=== PATIENT | male | born 1980 | race American Indian/Alaskan Native ===

== ENCOUNTER 2018-11-09 08:51 | Observation (INO) | payer MEDICAID ==
[2018-11-09] MEDS ORDERED: Sodium Chloride 0.9% 1,000 ML IV ONE (09:22)
[2018-11-09] MEDS ORDERED: Albuterol 0.083% Inhal Sol (2.5 mg/3 mL) UD IH STA (09:22)
[2018-11-09] MEDS ORDERED: Sodium Chloride 0.9% 1,000 ML ONE (09:40)
[2018-11-09] MEDS ORDERED: Albuterol-Ipratrop 3 mg / 0.5 (3 ml) UD INH STA (10:29)
[2018-11-09] MEDS ORDERED: Albuterol 0.083% Inhal Sol (2.5 mg/3 mL) UD ONE (10:43)
--- NOTE | 2018-11-09 10:44 | C.PDOC ---
History Of Present Illness 38 year old male presents to ED with complaint of SOB and wheezing for several days. Patient has a PMHx of asthma. He reports feeling tremulous due to alcohol withdrawal. Patient states that he drinks daily and states that his last drink was yesterday morning. Patient denies chest pain,fever, cough, palpitations, headache, and dizziness. Time Seen by Provider: 11/09/18 09:06 Chief Complaint (Nursing): Substance Abuse History Per: Patient History/Exam Limitations: no limitations Onset/Duration Of Symptoms: Days Current Symptoms Are (Timing): Still Present Suicide/Self Injury Attempted (Context): None Modifying Factor(s): Alcohol Past Medical History Reviewed: Historical Data, Nursing Documentation, Vital Signs Vital Signs: Last Vital Signs Temp 98.4 F 11/09/18 08:54 Pulse 122 H 11/09/18 08:54 Resp 24 11/09/18 08:54 BP 155/89 H 11/09/18 08:54 Pulse Ox 97 11/09/18 08:54 - Medical History PMH: Asthma, HTN, Pancreatitis Surgical History: No Surg Hx Family History: States: Unknown Family Hx - Social History Hx Alcohol Use: Yes Hx Substance Use: No - Immunization History Hx Tetanus Toxoid Vaccination: No Hx Influenza Vaccination: Yes Hx Pneumococcal Vaccination: No Review Of Systems Constitutional: Negative for: Fever, Chills, Weakness Cardiovascular: Negative for: Chest Pain, Palpitations Respiratory: Positive for: Shortness of Breath, Wheezing. Negative for: Cough Neurological: Negative for: Weakness, Numbness, Headache, Dizziness Physical Exam - Physical Exam Appears: Non-toxic, No Acute Distress, Other (uncomfortable, speaking full sentences) Skin: Normal Color, Warm, Dry Head: Atraumatic, Normacephalic Neck: Normal ROM, Supple Chest: Symmetrical, No Deformity Cardiovascular: Rhythm Regular, Other (tachycardic) Respiratory: No Accessory Muscle Use, No Rales, No Rhonchi, Wheezing (expiratory wheezing bilaterally) Gastrointestinal/Abdominal: Soft, No Tenderness Extremity: Capillary Refill (<2 seconds), Other (mild tremors to the bilateral upper extremities) Pulses: Left Radial: Normal, Right Radial: Normal Neurological/Psych: Oriented x3, Normal Speech, Normal Cognition ED Course And Treatment - Laboratory Results Result Diagrams: 11/09/18 10:49 11/09/18 10:49 O2 Sat by Pulse Oximetry: 97 (in RA) - Other Rad CXR X-Ray: Interpreted by Me, Viewed By Me Interpretation: IMPRESSION: No acute findings identified. Progress Note: Labs ordered with CMP and CBC. CXR ordered for patient. Patient given Solu-medrol IVP, IV fluids, albuterol, and ativan. Disposition - Disposition Forms: [place] (Belarusian) - Scribe Statement The provider has reviewed the documentation as recorded by the Scribe (Smita Patterson) All medical record entries made by the Scribe were at my direction and person ally dictated by me. I have reviewed the chart and agree that the record accurately reflects my personal performance of the history, physical exam, medical decision making, and the department course for this patient. I have also personally directed, reviewed, and agree with the discharge instructions and disposition.
[2018-11-09 10:55] LABS: BASO % 1.1 % (0.0-2.0); EOS % 0.6 % (0.0-4.0); HEMOGLOBIN 14.5 g/dL (12.0-18.0); LYMPH # 1.2 K/uL (1.0-4.3); LYMPH % 32.9 % (20.0-40.0); MEAN CELL VOLUME 95.5 fL (80.0-94.0); MEAN CORPUSCULAR HEMOGLOBIN 32.4 pg (27.0-31.0); MEAN CORPUSCULAR HGB CONC 33.9 g/dL (33.0-37.0); MEAN PLATELET VOLUME 11.4 fL (7.2-11.7); MONO # 0.3 K/uL (0.0-0.8); MONO % 8.1 % (0.0-10.0); NEUT # 2.1 K/uL (1.8-7.0); NEUT % 57.3 % (50.0-75.0); NRBC % 0.1 % (0.0-2.0); RBC 4.47 Mil/uL (4.40-5.90); RED CELL DISTRIBUTION WIDTH 14.8 % (11.5-14.5); WHITE BLOOD COUNT 3.7 K/uL (4.8-10.8)
[2018-11-09 11:13] LABS: ALB/GLOB RATIO 1.5 (1.0-2.1); ALBUMIN 4.7 g/dL (3.5-5.0); ALT/SGPT 62 U/L (21-72); AST/SGOT 236 U/L (17-59); BLOOD UREA NITROGEN 7 mg/dL (9-20); CALCIUM 9.7 mg/dl (8.6-10.4); GFR NON-AFRICAN AMERICAN > 60
--- NOTE | 2018-11-09 11:16 | RAD ---
HISTORY: SOB COMPARISON: None available. TECHNIQUE: Chest, one view. FINDINGS: Examination limited by habitus. LUNGS: No focal consolidation. Please note that chest x-ray has limited sensitivity for the detection of pulmonary masses. PLEURA: No significant pleural effusion identified. No definite pneumothorax . CARDIOVASCULAR: Heart size appears within normal limits. Atherosclerotic calcification of the aortic knob. OSSEOUS STRUCTURES: No acute osseous abnormality identified. VISUALIZED UPPER ABDOMEN: Unremarkable. OTHER FINDINGS: None. IMPRESSION: No acute findings identified.
[2018-11-09] MEDS ORDERED: Potassium Chloride 20 mEq ER Tab PO STA (11:23)
[2018-11-09] MEDS ORDERED: Potassium Chloride 20 mEq ER Tab PO ONE (11:30)
[2018-11-09] MEDS ORDERED: Magnesium Sulfate 1 gm in D5W 1 GM/100 ML BAG IV ONE (11:41)
[2018-11-09] MEDS ORDERED: Multivitamin (MVI) 10 ML, Thiamine 100 MG, Folic Acid 1 MG in Sodium Chloride 0.9% 1,00... IV ONE (11:42)
[2018-11-09] MEDS ORDERED: Magnesium Sulfate 2 GM in Dextrose 5% In Water 250 ML IV ONE (12:00)
[2018-11-09] MEDS: Albuterol-Ipratrop 3 mg / 0.5 (3 ml) UD INH SCH ×2 (16:48→19:28)
[2018-11-09] MEDS ORDERED: Pneumococcal 23-Valent Vaccine IM ONE (18:45)
[2018-11-09] MEDS: Dextrose 5%/0.45% NS 1,000 ML IV SCH (20:42)
[2018-11-10] MEDS: Albuterol-Ipratrop 3 mg / 0.5 (3 ml) UD INH SCH ×4 (00:44→11:22)
[2018-11-10] MEDS ORDERED: Meropenem 1 GM in Sodium Chloride 0.9% 100 ML IVPB SCH (02:00)
[2018-11-10] MEDS: Dextrose 5%/0.45% NS 1,000 ML IV SCH (05:46)
--- NOTE | 2018-11-10 07:44 | CP.PCM.PN ---
Subjective - Date & Time of Evaluation Date of Evaluation: 11/10/18 Time of Evaluation: 08:00 - Subjective Subjective: Medicine Progress Note for Dr. Jarvis: Patient was seen and examined at bedside in the AM. Patient states he came to the ER yesterday for shortness of breath. He also states he was feeling tremulous due to alcohol withdrawal. Patient states that he drinks daily about 1/5 of vodka per day for the past 20 years. He states last drink was Wednesday. Patient states he has had seizures from alcohol withdrawal in the past. He states he has a loose bowel movement daily due to his drinking of alcohol. Patient currently denies shortness of breath, chest pain, nausea, vomiting, fever or chills at this time. Objective - Vital Signs/Intake and Output Vital Signs (last 24 hours): Temp Pulse Resp BP Pulse Ox 98.1 F 88 20 146/84 97 11/09/18 23:14 11/10/18 01:00 11/09/18 23:14 11/09/18 23:14 11/10/18 02:00 Intake and Output: 11/10/18 11/10/18 06:59 18:59 Intake Total 1300 Balance 1300 - Medications Medications: Current Medications Acetaminophen (Tylenol 325mg Tab) 650 mg PO Q6 PRN PRN Reason: Pain, moderate (4-7) Last Admin: 11/09/18 22:18 Dose: 650 mg Albuterol/Ipratropium (Duoneb 3 Mg/0.5 Mg (3 Ml) Ud) 3 ml INH RQ4 RIC Last Admin: 11/10/18 04:50 Dose: Not Given Dextrose/Sodium Chloride (Dextrose 5%/0.45% Ns 1000 Ml) 1,000 mls @ 100 mls/hr IV .Q10H RIC Last Admin: 11/10/18 05:46 Dose: Not Given Lorazepam (Ativan) 2 mg IVP Q3H PRN PRN Reason: Restlessness Last Admin: 11/10/18 05:46 Dose: 2 mg - Labs Labs: 11/09/18 10:49 11/09/18 10:49 - Constitutional Appears: No Acute Distress - Head Exam Head Exam: ATRAUMATIC, NORMAL INSPECTION - Eye Exam Eye Exam: EOMI, Normal appearance - ENT Exam ENT Exam: Mucous Membranes Dry - Respiratory Exam Respiratory Exam: Clear to Ausculation Bilateral, NORMAL BREATHING PATTERN - Cardiovascular Exam Cardiovascular Exam: REGULAR RHYTHM, +S1, +S2 - GI/Abdominal Exam GI & Abdominal Exam: Soft, Normal Bowel Sounds. absent: Tenderness - Extremities Exam Extremities Exam: Normal Inspection - Neurological Exam Neurological Exam: Alert, Awake, Oriented x3 Additional comments: tremulous - Psychiatric Exam Psychiatric exam: Flat Affect - Skin Skin Exam: Normal Color Assessment and Plan - Assessment and Plan (Free Text) Assessment: Shortness of breath - resolved Secondary to Asthma Exacerbation - Duonebs q4h prn for shortness of breath Alcohol Dependence - Alcohol Level: 168 - f/u UDS - Discussed the importance of alcohol cessation - CIWA - Medications * Ativan 2mg IV q3 prn * Multivitamin Elevated Liver Enzymes Secondary to Alcohol abuse - AST/ALT: 134/45 - Continue to monitor Phosphotemia secondary to Alcohol abuse - Phosphate 0.9 - KPhos once - f/u Phosphate level in the AM - Continue to monitor, repleat as needed Hypokalemia - K 3.2 - Kdur 40 meq; Kdur 20 meq - f/u bmp - Continue to monitor Thrombocytopenia - Platelets: 54 Secondary to Alcohol abuse Prophylaxis - VTE contraindication due to thrombocytopenia - GI prophylaxis not indicated - SCDs - Seizure precautions - Heart Healthy Diet - PT All plans and management discussed with Dr. Matheus Mcmahon PGY-2
[2018-11-10 08:47] LABS: BASO % 0.1 % (0.0-2.0); HEMOGLOBIN 13.2 g/dL (12.0-18.0); LYMPH # 0.7 K/uL (1.0-4.3); LYMPH % 15.7 % (20.0-40.0); MEAN CELL VOLUME 95.3 fL (80.0-94.0); MEAN CORPUSCULAR HGB CONC 33.6 g/dL (33.0-37.0); MEAN PLATELET VOLUME 11.1 fL (7.2-11.7); MONO # 0.5 K/uL (0.0-0.8); MONO % 10.6 % (0.0-10.0); NEUT # 3.4 K/uL (1.8-7.0); NEUT % 73.6 % (50.0-75.0); NRBC % 0.3 % (0.0-2.0); RBC 4.11 Mil/uL (4.40-5.90); RED CELL DISTRIBUTION WIDTH 14.6 % (11.5-14.5); WHITE BLOOD COUNT 4.6 K/uL (4.8-10.8)
[2018-11-10 08:57] LABS: ALB/GLOB RATIO 1.6 (1.0-2.1); ALBUMIN 4.1 g/dL (3.5-5.0); ALT/SGPT 45 U/L (21-72); AST/SGOT 134 U/L (17-59); BLOOD UREA NITROGEN 7 mg/dL (9-20); CALCIUM 9.1 mg/dl (8.6-10.4); GFR NON-AFRICAN AMERICAN > 60
[2018-11-10] MEDS ORDERED: Multivitamin (MVI) 10 ML, Thiamine 100 MG, Folic Acid 1 MG in Sodium Chloride 0.9% 1,00... IV ONE (09:00)
[2018-11-10] MEDS ORDERED: Potassium Chloride 20 mEq ER Tab PO ONE ×2 (09:18→12:00)
[2018-11-10] MEDS ORDERED: Enoxaparin 40 mg Syringe SC SCH (10:00)
[2018-11-10] MEDS: Folic Acid 1 MG, Thiamine 100 MG, Multivitamin (MVI) 10 ML in Dextrose 5% In Water 1,00... IV SCH ×2 (12:09→21:39)
[2018-11-10] MEDS ORDERED: Potassium Phosphate 15 MMOLE in Sodium Chloride 0.9% 250 ML IV ONE (13:00)
[2018-11-10] MEDS ORDERED: Albuterol-Ipratrop 3 mg / 0.5 (3 ml) UD INH PRN (14:51)
[2018-11-10 14:54] LABS: BARBITURATES, UR NEGATIVE (NEGATIVE); OPIATES, UR NEGATIVE (NEGATIVE); PHENCYCLIDINE, UR NEGATIVE (NEGATIVE)
[2018-11-10 14:55] LABS: BENZODIAZEPINES, UR POSITIVE (NEGATIVE)
[2018-11-10 17:19] LABS: BLOOD UREA NITROGEN 8 mg/dL (9-20); CALCIUM 9.4 mg/dl (8.6-10.4); GFR NON-AFRICAN AMERICAN > 60
[2018-11-11] MEDS: Folic Acid 1 MG, Thiamine 100 MG, Multivitamin (MVI) 10 ML in Dextrose 5% In Water 1,00... IV SCH ×2 (04:00→12:20)
[2018-11-11 04:43] VITALS: RESP 20
--- NOTE | 2018-11-11 06:24 | HP ---
HISTORY OF PRESENT ILLNESS: Mr. Dorado came to the hospital with the chief complaint of shortness of breath and alcohol withdrawal. The patient has history of alcoholism. Multiple admissions for the same. The patient came to the ER, advised admission. PHYSICAL EXAMINATION: GENERAL: The patient is awake and oriented. VITAL SIGNS: Temperature 98.6, pulse 100, blood pressure 120/82. HEENT: Within normal limits. NECK: Supple. CHEST: Symmetrical. HEART: Regular. ABDOMEN: Soft. EXTREMITIES: There are some tremors present. ASSESSMENT AND PLAN: The patient suffers from alcohol withdrawal, chronic obstructive pulmonary disease. Patient on bronchodilators, Ativan and thiamine. Madeline Jarvis MD
[2018-11-11 07:46] LABS: BASO % 0.3 % (0.0-2.0); EOS % 0.2 % (0.0-4.0); HEMOGLOBIN 13.3 g/dL (12.0-18.0); LYMPH % 30.9 % (20.0-40.0); MEAN CELL VOLUME 95.6 fL (80.0-94.0); MEAN CORPUSCULAR HEMOGLOBIN 32.3 pg (27.0-31.0); MEAN CORPUSCULAR HGB CONC 33.8 g/dL (33.0-37.0); MEAN PLATELET VOLUME 11.2 fL (7.2-11.7); MONO # 0.2 K/uL (0.0-0.8); MONO % 5.4 % (0.0-10.0); NEUT % 63.2 % (50.0-75.0); NRBC % 0.3 % (0.0-2.0); RBC 4.12 Mil/uL (4.40-5.90); RED CELL DISTRIBUTION WIDTH 14.6 % (11.5-14.5); WHITE BLOOD COUNT 3.1 K/uL (4.8-10.8)
[2018-11-11 08:00] LABS: ALB/GLOB RATIO 1.5 (1.0-2.1); ALBUMIN 3.7 g/dL (3.5-5.0); ALT/SGPT 84 U/L (21-72); AST/SGOT 297 U/L (17-59); BLOOD UREA NITROGEN 11 mg/dL (9-20); CALCIUM 9.4 mg/dl (8.6-10.4); GFR NON-AFRICAN AMERICAN > 60
[2018-11-11] MEDS ORDERED: Potassium Chloride 20 mEq ER Tab PO ONE (09:45)
--- NOTE | 2018-11-11 12:33 | CP.PCM.PN ---
Subjective - Date & Time of Evaluation Date of Evaluation: 11/11/18 Time of Evaluation: 09:10 - Subjective Subjective: Medicine note ( Dr. Jarvis's service) Patient was seen and examined at bedside as he was resting comfortably in bed. Patient reports fatigue and decreased appetite. Patient denies any symptoms of chest pain, palpitations, shortness of breath, dizziness, syncope, abdominal pain, bowel changes, tremors, hallucination. Patient is alert, awake and oriented. Objective - Vital Signs/Intake and Output Vital Signs (last 24 hours): Temp Pulse Resp BP Pulse Ox 98.0 F 72 20 127/74 98 11/11/18 07:07 11/11/18 07:30 11/11/18 07:07 11/11/18 07:07 11/11/18 07:07 Intake and Output: 11/11/18 11/11/18 06:59 18:59 Intake Total 1040 Output Total 600 Balance 440 - Medications Medications: Current Medications Acetaminophen (Tylenol 325mg Tab) 650 mg PO Q6 PRN PRN Reason: Pain, moderate (4-7) Last Admin: 11/10/18 21:33 Dose: 650 mg Albuterol/Ipratropium (Duoneb 3 Mg/0.5 Mg (3 Ml) Ud) 3 ml INH RQ4 PRN PRN Reason: Shortness of Breath Folic Acid 1 mg/ Thiamine HCl 100 mg/ Multivitamins/Vitamin C 10 ml/ Dextrose 1,011.2 mls @ 80 mls/hr IV .[id number] RIC Last Admin: 11/11/18 12:20 Dose: Not Given Lorazepam (Ativan) 2 mg IVP Q3H PRN PRN Reason: Restlessness Last Admin: 11/11/18 11:02 Dose: 2 mg - Labs Labs: 11/11/18 07:30 11/11/18 07:30 - Constitutional Appears: Well, No Acute Distress - Head Exam Head Exam: ATRAUMATIC, NORMAL INSPECTION - Eye Exam Eye Exam: EOMI, Normal appearance - ENT Exam ENT Exam: Mucous Membranes Moist - Respiratory Exam Respiratory Exam: Clear to Ausculation Bilateral, NORMAL BREATHING PATTERN. absent: Prolonged Expiratory Phase, Rhonchi, Respiratory Distress - Cardiovascular Exam Cardiovascular Exam: REGULAR RHYTHM, +S1, +S2. absent: Murmur - GI/Abdominal Exam GI & Abdominal Exam: Soft, Normal Bowel Sounds. absent: Distended, Firm, G uarding, Rigid, Tenderness - Extremities Exam Extremities Exam: Normal Inspection. absent: Calf Tenderness, Pedal Edema - Back Exam Back Exam: NORMAL INSPECTION - Neurological Exam Neurological Exam: Alert, Awake, Oriented x3 - Psychiatric Exam Psychiatric exam: Normal Affect - Skin Skin Exam: Normal Color Assessment and Plan (1) Shortness of breath Assessment & Plan: Stable, not in acute exacerbation Secondary to asthma exacerbation * Duonebs 3ML INH RQ4H PRN Status: Acute (2) Alcohol dependence Assessment & Plan: Alcohol level: 168 UDS: + for Cannabinoids CIWA - Medications * Ativan 2mg IV q3 prn * Banana bag Status: Acute (3) Electrolyte imbalance Assessment & Plan: Phosphotemia resolved Hypokalemia improving; repleted appropriately Continue to monitor with am labs Status: Acute (4) Thrombocytopenia Assessment & Plan: Secondary to chronic alcohol abuse No acute/active bleeding Continue to monitor with am labs Status: Acute (5) Elevated liver enzymes Assessment & Plan: Secondary to chronic alcohol abuse Status: Acute (6) Prophylactic measure Assessment & Plan: GI: Not indicated DVT: anticoagulation contraindicated due to thrombocytopenis SCDs Seizure precautions PT/OT All plans and management discuss with Dr. Jarvis Status: Acute
--- NOTE | 2018-11-11 12:52 | RAD ---
Date of service: 11/11/2018 PROCEDURE: Right Ankle Radiographs. HISTORY: s/p fall COMPARISON: None available. TECHNIQUE: 3 views obtained. FINDINGS: BONES: A transverse lucency in the lateral malleolus bone alignment and mineralization are normal. There is no evidence for bone destruction. JOINTS: There is a small joint effusion. Ankle mortise maintained. Talar dome intact SOFT TISSUES: There is linear radiodensity lateral to the lateral malleolus. OTHER FINDINGS: There is moderate lateral soft tissue swelling. IMPRESSION: Findings are most compatible with age-indeterminate acute/subacute transverse nondisplaced fracture in the lateral malleolus with small joint effusion and mild lateral soft tissue swelling. Linear calcification lateral to the lateral malleolus could represent callus or soft tissue calcification
[2018-11-11] MEDS ORDERED: Magnesium Sulfate 1 gm in D5W 1 GM/100 ML BAG IVPB ONE (13:00)
[2018-11-12 08:28] VITALS: BP 131/82; PULSE 85; TEMP 98.4; O2SAT 97
[2018-11-12] MEDS ORDERED: Multiple Vitamins Tab PO SCH (10:00)
--- NOTE | 2018-11-12 16:56 | CP.PCM.PN ---
Subjective - Date & Time of Evaluation Date of Evaluation: 11/12/18 Time of Evaluation: 11:00 - Subjective Subjective: alert, orientedx3, no tremores, sob or distress noted. Objective - Vital Signs/Intake and Output Vital Signs (last 24 hours): Temp Pulse Resp BP Pulse Ox 98.4 F 85 20 131/82 97 11/12/18 07:00 11/12/18 07:00 11/12/18 07:00 11/12/18 07:00 11/12/18 07:00 Intake and Output: 11/12/18 11/12/18 06:59 18:59 Intake Total 200 Output Total 1600 Balance -1400 - Labs Labs: 11/11/18 07:30 11/11/18 07:30 Assessment and Plan - Assessment and Plan (Free Text) Assessment: 38 year old male admitted with COPD, alcohol withdrawals, seen and examined with DR Jarvis. Alert and oriented x3 , no acute withdrawal symptoms noted. Right ankle xray noted with lateral malleolar fracture, aute/chronic. Consulted with podiatry resident will come and evaluate the ankle, but the patient didn't want to wait. He was discharged and was advised to take advil for pain and ankle support and follow up with podiatry office. Advised to follow up with PMD in 1 week.
== END 2018-11-12 13:00 | disposition home or self-care (01) ==
LOC: C.ER 08:51 → C.9E 11:46 → C.6T 14:47
PROVIDERS: ADMIT Internal Medicine Pulmonary Disease; ATTEND Internal Medicine Pulmonary Disease
DX: F10.239 Alcohol dependence with withdrawal, unspecified (principal); J44.9 Chronic obstructive pulmonary disease, unspecified; I10 Essential (primary) hypertension; M25.571 Pain in right ankle and joints of right foot; Y90.6 Blood alcohol level of 120-199 mg/100 ml
CPT/HCPCS: 36415; 71045; 73610; 80048; 80053; 80320; 80324; 80345; 80346; 80349; 80353; 80358; 80361; 82948; 83735; 83992; 84100; 85025; 94150; 94640; 96361; 96365; 96366; 96375; 96376; 97162; 97530; 99285; G0378; G8978; G8979; J2060; J2930; J3411; J3475; J7030; J7042; J7060; J7070

== ENCOUNTER 2018-11-22 10:51 | Inpatient (IN) | payer MEDICAID ==
--- NOTE | 2018-11-22 11:06 | C.PDOC ---
Time Seen by Provider: 11/22/18 10:52 Chief Complaint (Nursing): Substance Abuse Past Medical History - Medical History PMH: Asthma, HTN, Pancreatitis Family History: States: Unknown Family Hx - Social History Hx Alcohol Use: Yes Hx Substance Use: No - Immunization History Hx Tetanus Toxoid Vaccination: No Hx Influenza Vaccination: Yes Hx Pneumococcal Vaccination: No Disposition - Disposition
[2018-11-22 11:11] VITALS: BMI 25.3
[2018-11-22 12:18] LABS: BASO # 0.1 K/uL (0.0-0.2); BASO % 1.5 % (0.0-2.0); EOS # 0.1 K/uL (0.0-0.7); EOS % 1.5 % (0.0-4.0); HEMOGLOBIN 12.6 g/dL (12.0-18.0); LYMPH % 34.6 % (20.0-40.0); MEAN CELL VOLUME 96.3 fL (80.0-94.0); MEAN CORPUSCULAR HEMOGLOBIN 32.2 pg (27.0-31.0); MEAN CORPUSCULAR HGB CONC 33.4 g/dL (33.0-37.0); MEAN PLATELET VOLUME 9.3 fL (7.2-11.7); MONO # 0.6 K/uL (0.0-0.8); NEUT % 52.4 % (50.0-75.0); RBC 3.91 Mil/uL (4.40-5.90); RED CELL DISTRIBUTION WIDTH 14.8 % (11.5-14.5)
[2018-11-22 12:21] LABS: URINE BILIRUBIN NEGATIVE (NEGATIVE); URINE BLOOD NEGATIVE (NEGATIVE); URINE CLARITY Clear (Clear); URINE COLOR Yellow (YELLOW); URINE GLUCOSE (UA) NORMAL (Normal); URINE LEUKOCYTE ESTERASE NEG Leu/uL (Negative); URINE PROTEIN NEGATIVE (NEGATIVE); URINE UROBILINOGEN NORMAL mg/dL (0.2-1.0)
[2018-11-22 12:25] LABS: WHITE BLOOD COUNT 5.7 K/uL (4.8-10.8)
[2018-11-22 12:42] LABS: ALB/GLOB RATIO 1.5 (1.0-2.1); ALBUMIN 4.1 g/dL (3.5-5.0); ALT/SGPT 91 U/L (21-72); AST/SGOT 121 U/L (17-59); BLOOD UREA NITROGEN 12 mg/dL (9-20); CALCIUM 9.3 mg/dl (8.6-10.4); GFR NON-AFRICAN AMERICAN > 60
[2018-11-22 12:45] LABS: BARBITURATES, UR NEGATIVE (NEGATIVE); OPIATES, UR NEGATIVE (NEGATIVE); PHENCYCLIDINE, UR NEGATIVE (NEGATIVE)
[2018-11-22 12:46] LABS: BENZODIAZEPINES, UR POSITIVE (NEGATIVE)
--- NOTE | 2018-11-22 14:35 | PCM.PSYCH ---
Initial Psychiatric Evaluation - Initial Psychiatric Evaluation Type of Admission: Voluntary Legal Status: Capacity Chief Complaint (in patient's own words): I want detox History of Present Illness and Precipitating Events: Patient is a 38 year old single male, lives alone and is currently unemployed, requesting detox from alcohol. Patient reports an extensive alcohol abuse history, beginning at age 14 or 15, drinking a fifth of vodka daily. Patient reports 1 previous detox attempt in September, with immediate relapse upon release. Patient reports several attempts to quit cold turkey with 2 withdrawal seizures. Patient reports he suffers from anxiety and depression but does not have a psychiatrist and takes no medications. Patient reports he uses marijuana; denies tobacco or other drug use. He reports his entire family has alcohol abuse disorders. HPI limited, as patient is currently intoxicated with last drink this morning, BAL 375 on admission. PsychHx: Alcohol Use d/o, Depression, anxiety PMHx: asthma, pancreatitis, HTN FamHx: Alcohol abuse Past Psychiatric History - Past Psychiatric History Previous Treatment History: Inpatient Pertinent Medical Hx (Current Medical&Sleep Prob, Allergies): Allergies Allergy/AdvReac Type Severity Reaction Status Date / Time No Known Allergies Allergy Verified 11/22/18 11:09 Albuterol Sulfate [Ventolin Hfa] 0.09 mg IH QID PRN #1 ml 11/12/18 Folic Acid 1 mg PO DAILY #30 tab 11/12/18 Thiamine [Vitamin B1 Tab] 100 mg PO DAILY #30 tab 11/12/18 chlordiazePOXIDE [Chlordiazepoxide HCl] 25 mg PO Q8H PRN #15 cap 11/12/18 Review of Systems - Psychiatric Psychiatric: Anxiety, Depression. absent: Hallucinations, Suicidal Ideation Mental Status Examination - Personal Presentation Personal Presentation: Looks stated age - Affect Affect: Constricted - Motor Activity Motor Activity: Calm - Reliability in Providing Information Reliability in Providing Information: Poor, due to cognitve impairment (intoxicated) - Speech Speech: Organized, Other (slurred) - Mood Mood: Depressed - Formal Thought Process Formal Thought Process: No Impairment - Cognitive Functions Orientation: Person, Place, Situation, Time Sensorium: Drowsy Estimate of Intelligence: Average Judgement: Intact, as evidence by: Insight regarding need for hospitalization - Risk Risk: Seizure, Withdrawal, Diminished functioning - Strength & Assets Inventory Strength & Assets Inventory: Cooperative - Limitations Limitations: Living alone DSM 5 DX - DSM 5 DSM 5 Diagnosis: Alcohol Withdrawal Alcohol Use Disorder, severe Cannabis Use Disorder, severe Major Depressive Disorder Generalized Anxiety Disorder - Recommended/Plan of Treatment Treatment Recommendations and Plan of Treatment: Taper with Ativan PRN medications, Ativan, Clonidine, Motrin, Atarax, Trazodone Continue home medications for HTN and asthma All risks, benefits and treatment alternatives of medications discussed; patient understands and agrees Attend groups and activities Supportive therapy and psycho-education WI for abstinence CBT for relapse prevention Encourage MAT Refer to rehab or IOP, and self-help groups Teach healthy lifestyle methods(diet, exercise, meditation) Smoking cessation with WI Discussed with Dr. Aldrich -Evelia Hoffman, PGY-1 33 min Projected ELOS: 5 days - Smoking Cessation Smoking Cessation Initiated: No Reason for not providing: non-smoker
--- NOTE | 2018-11-22 14:38 | C.PDOC ---
Time Seen by Provider: 11/22/18 10:52 Chief Complaint (Nursing): Substance Abuse Past Medical History Vital Signs: Last Vital Signs Temp 98.1 F 11/22/18 11:09 Pulse 100 H 11/22/18 11:09 Resp 18 11/22/18 11:09 BP 138/96 H 11/22/18 11:09 Pulse Ox 97 11/22/18 11:09 - Medical History PMH: Asthma, HTN, Pancreatitis Family History: States: Unknown Family Hx - Social History Hx Alcohol Use: Yes Hx Substance Use: No - Immunization History Hx Tetanus Toxoid Vaccination: No Hx Influenza Vaccination: Yes Hx Pneumococcal Vaccination: No ED Course And Treatment - Laboratory Results Result Diagrams: 11/22/18 12:15 11/22/18 12:15 Lab Results: Total Bilirubin 0.4 mg/dL (0.2-1.3) 11/22/18 12:15 AST 121 U/L (17-59) H D 11/22/18 12:15 ALT 91 U/L (21-72) H 11/22/18 12:15 Alkaline Phosphatase 116 U/L (38-126) 11/22/18 12:15 Total Protein 6.8 g/dL (6.3-8.3) 11/22/18 12:15 Albumin 4.1 g/dL (3.5-5.0) 11/22/18 12:15 Globulin 2.7 gm/dL (2.2-3.9) 11/22/18 12:15 Albumin/Globulin Ratio 1.5 (1.0-2.1) 11/22/18 12:15 Urine Color Yellow (YELLOW) 11/22/18 12:15 Urine Clarity Clear (Clear) 11/22/18 12:15 Urine pH 6.0 (5.0-8.0) 11/22/18 12:15 Ur Specific [place] 1.010 (1.003-1.030) 11/22/18 12:15 Urine Protein Negative mg/dL (NEGATIVE) 11/22/18 12:15 Urine Glucose (UA) Normal mg/dL (Normal) 11/22/18 12:15 Urine Ketones Negative mg/dL (NEGATIVE) 11/22/18 12:15 Urine Blood Negative (NEGATIVE) 11/22/18 12:15 Urine Nitrate Negative (NEGATIVE) 11/22/18 12:15 Urine Bilirubin Negative (NEGATIVE) 11/22/18 12:15 Urine Urobilinogen Normal mg/dL (0.2-1.0) 11/22/18 12:15 Ur Leukocyte Esterase Neg Rea/uL (Negative) 11/22/18 12:15 Urine WBC (Auto) < 1 /hpf (0-5) 11/22/18 12:15 Urine RBC (Auto) 1 /hpf (0-3) 11/22/18 12:15 O2 Sat by Pulse Oximetry: 97 Progress Note: Patient is medically cleared and clinically sober. Patient is stable for detox admission. - Physician Consult Information Physician Contacted: Lindsey Aldrich Outcome Of Conversation: accepted to Detox Disposition - Disposition Disposition: HOSPITALIZED Disposition Time: 13:54 Condition: STABLE Forms: [place] (Hungarian) - Clinical Impression Clinical Impression: Alcohol dependence Decision To Admit - Pt Status Changed To: Hospital Disposition Of: Inpatient - Admit Certification Admit to Inpatient:: After my assessment, the patient will require hospitalization for at least two midnights. This is because of the severity of symptoms shown, intensity of services needed, and/or the medical risk in this patient being treated as an outpatient. - . Bed Request Type: Detox Patient Diagnosis: Alcohol dependence
--- NOTE | 2018-11-22 14:53 | C.PDOC ---
History Of Present Illness 38 y/o male with a PMHx of alcohol abuse presents to the ED requesting detox from alcohol. Denies any other substance abuse. No complaints offered at this time. Patient denies any SI, HI, or current withdrawal symptoms. Last drink was this morning. Time Seen by Provider: 11/22/18 10:52 Chief Complaint (Nursing): Substance Abuse History Per: Patient History/Exam Limitations: no limitations Onset/Duration Of Symptoms: Days Current Symptoms Are (Timing): Still Present Modifying Factor(s): Alcohol Associated Symptoms: denies: Suicidal Thoughts, Suicidal Plan Past Medical History Reviewed: Historical Data, Nursing Documentation, Vital Signs Vital Signs: Last Vital Signs Temp 98.1 F 11/22/18 11:09 Pulse 100 H 11/22/18 11:09 Resp 18 11/22/18 11:09 BP 138/96 H 11/22/18 11:09 Pulse Ox 97 11/22/18 14:37 - Medical History PMH: Asthma, HTN, Pancreatitis Family History: States: Unknown Family Hx - Social History Hx Alcohol Use: Yes Hx Substance Use: No - Immunization History Hx Tetanus Toxoid Vaccination: No Hx Influenza Vaccination: Yes Hx Pneumococcal Vaccination: No Review Of Systems Except As Marked, All Systems Reviewed And Found Negative. Constitutional: Negative for: Fever, Chills Cardiovascular: Negative for: Chest Pain Respiratory: Negative for: Shortness of Breath Gastrointestinal: Negative for: Vomiting, Abdominal Pain Psych: Positive for: Other (ETOH abuse). Negative for: Suicidal ideation Physical Exam - Physical Exam Appears: Non-toxic, No Acute Distress Skin: Warm, Dry Head: Atraumatic, Normacephalic Eye(s): bilateral: Normal Inspection, PERRL, EOMI Oral Mucosa: Moist Neck: Normal ROM Chest: Symmetrical Cardiovascular: Rhythm Regular, No Murmur Respiratory: Normal Breath Sounds, No Accessory Muscle Use Gastrointestinal/Abdominal: Soft, No Tenderness, No Distention Extremity: Bilateral: Atraumatic, Normal Color And Temperature Neurological/Psych: Oriented x3, Other (Somewhat slurred speech) ED Course And Treatment - Laboratory Results Result Diagrams: 11/22/18 12:15 11/22/18 12:15 Lab Results: Total Bilirubin 0.4 mg/dL (0.2-1.3) 11/22/18 12:15 AST 121 U/L (17-59) H D 11/22/18 12:15 ALT 91 U/L (21-72) H 11/22/18 12:15 Alkaline Phosphatase 116 U/L (38-126) 11/22/18 12:15 Total Protein 6.8 g/dL (6.3-8.3) 11/22/18 12:15 Albumin 4.1 g/dL (3.5-5.0) 11/22/18 12:15 Globulin 2.7 gm/dL (2.2-3.9) 11/22/18 12:15 Albumin/Globulin Ratio 1.5 (1.0-2.1) 11/22/18 12:15 Urine Color Yellow (YELLOW) 11/22/18 12:15 Urine Clarity Clear (Clear) 11/22/18 12:15 Urine pH 6.0 (5.0-8.0) 11/22/18 12:15 Ur Specific [place] 1.010 (1.003-1.030) 11/22/18 12:15 Urine Protein Negative mg/dL (NEGATIVE) 11/22/18 12:15 Urine Glucose (UA) Normal mg/dL (Normal) 11/22/18 12:15 Urine Ketones Negative mg/dL (NEGATIVE) 11/22/18 12:15 Urine Blood Negative (NEGATIVE) 11/22/18 12:15 Urine Nitrate Negative (NEGATIVE) 11/22/18 12:15 Urine Bilirubin Negative (NEGATIVE) 11/22/18 12:15 Urine Urobilinogen Normal mg/dL (0.2-1.0) 11/22/18 12:15 Ur Leukocyte Esterase Neg Rea/uL (Negative) 11/22/18 12:15 Urine WBC (Auto) < 1 /hpf (0-5) 11/22/18 12:15 Urine RBC (Auto) 1 /hpf (0-3) 11/22/18 12:15 O2 Sat by Pulse Oximetry: 97 (RA) Pulse Ox Interpretation: Normal Progress Note: Labs ordered for medical clearance. kitchen and counter worker will evaluate patient for detox placement. Labs resulted, patient is medically cleared and clinically sober. Discussed with crisis team, patient accepted under Dr. Aldrich. Disposition Discussed With : Lindsey Aldrich Doctor Will See Patient In The: Hospital Counseled Patient/Family Regarding: Diagnosis - Disposition Disposition: HOSPITALIZED Disposition Time: 13:53 Condition: STABLE - POA Present On Arrival: None - Clinical Impression Clinical Impression: Alcohol dependence - PA / EEG TECHNOLOGIST / Resident Statement MD/DO has reviewed & agrees with the documentation as recorded. - Scribe Statement The provider has reviewed the documentation as recorded by the Scribkimmy Tamayo All medical record entries made by the Randolphibe were at my direction and perso loyd dictated by me. I have reviewed the chart and agree that the record accurately reflects my personal performance of the history, physical exam, medical decision making, and the department course for this patient. I have also personally directed, reviewed, and agree with the discharge instructions and disposition. Decision To Admit - Pt Status Changed To: Hospital Disposition Of: Inpatient - Admit Certification Admit to Inpatient:: After my assessment, the patient will require hospitali zation for at least two midnights. This is because of the severity of symptoms shown, intensity of services needed, and/or the medical risk in this patient being treated as an outpatient. - InPatient: Physician Admission Certification: I certify that this patient requires 2 or more midnights of care for the following reason:: inpatient detox - . Bed Request Type: Detox Admitting Physician: Lindsey Aldrich Patient Diagnosis: Alcohol dependence
--- NOTE | 2018-11-22 16:05 | PCM.BM ---
<Zack Lomeli - Last Filed: 11/22/18 16:03> Treatment Plan Problems - Problems identified on initial assessmt Anxiety related to substnace abuse Date Initiated: 11/22/18 Time Initiated: 16:04 Assessment reference: NA Low motivation to change Date Initiated: 11/22/18 Time Initiated: 16:04 Assessment reference: NA Knowlede deficit: Alcohol use Date Initiated: 11/22/18 Time Initiated: 16:04 Assessment reference: NA Treatment assets and liabiliti Patient Assests: cooperative, self-reliant, ADL independent, negotiates basic needs, cognitively intact Patient Liabilities: live alone, poor support system, substance abuse (Cannabis, Alcohol), medical problems (Asthma, pancreatitis) - Milieu Protocol Maintain good personal hygiene: daily Encourage regular showers, daily Remind patient to perform daily oral care, every shift Assist patient to perform ADL's Conduct patient checks and document Observation sheet: Q15 minutes (For safety) Maintain personal safety: every shift Educate patient to report safety concerns to staff, every shift Monitor environment for contraband/sharps Medication safety: Monitor for expected outcome, potential side effects: every shift, Assess barriers to learning: every shift, Assess readiness for medication education: every shift Milieu Narrative: Taper with Librium PRN medications, Clonidine, Motrin, Atarax, Trazodone Continue home medications for HTN and asthma All risks, benefits and treatment alternatives of medications discussed; patient understands and agrees Attend groups and activities Supportive therapy and psycho-education [place] for abstinence CBT for relapse prevention Encourage MAT Refer to rehab or IOP, and self-help groups Teach healthy lifestyle methods(diet, exercise, meditation) Smoking cessation with [place] Discussed with Dr. Valdemar Hoffman, PGY-1 33 min Discharge/Continuing Care - Treatment Team Participation Patient/Family/SO Statement: Taper with Librium PRN medications, Clonidine, Motrin, Atarax, Trazodone Continue home medications for HTN and asthma All risks, benefits and treatment alternatives of medications discussed; patient understands and agrees Attend groups and activities Supportive therapy and psycho-education [place] for abstinence CBT for relapse prevention Encourage MAT Refer to rehab or IOP, and self-help groups Teach healthy lifestyle methods(diet, exercise, meditation) Smoking cessation with [place] Discussed with Dr. Valdemar Hoffman, PGY-1 33 min <Kadi Díaz - Last Filed: 11/23/18 11:38> Family Contact Family involvement: No known Family/SO - Goals for Treatment Patient goals for treatment: Complete detox and review aftercare options with counseling staff. Discharge/Continuing Care - Education Needs Education Needs: Patient Medication, Patient Diagnosis/Disease Process, Patient Coping Skills, Patient Anger Management skills, Patient Placement options, Patient Community resources - Discharge Discharge Criteria: No longer exhibiting s/s of withdrawal, Reduction of target symptoms Discharge to:: Other (Pt. is unsure of aftercare decision as of this writing.) - Treatment Team Participation Patient/Family/SO Statement: 11/23/18 11:38 "I dunno what I wanna do yet. I just wanna go back to bed..." Discussed with Family/SO: No Was Patient/Family/SO present at Treatment Team Meeting: Yes
[2018-11-22] MEDS: Albuterol 0.083% Inhal Sol (2.5 mg/3 mL) UD INH PRN ×2 (16:35→22:20)
[2018-11-22] MEDS: Magnesium Oxide 400 mg Tab UD PO SCH (17:26)
[2018-11-22] MEDS: Multiple Vitamins Tab PO SCH (17:26)
[2018-11-22] MEDS: Pantoprazole 20 mg EC Tab PO SCH (17:26)
[2018-11-23] MEDS: Albuterol 0.083% Inhal Sol (2.5 mg/3 mL) UD INH PRN ×2 (01:58→07:37)
[2018-11-23] MEDS: Magnesium Oxide 400 mg Tab UD PO SCH ×2 (10:08→17:06)
[2018-11-23] MEDS: Pantoprazole 20 mg EC Tab PO SCH (10:09)
[2018-11-23] MEDS: Multiple Vitamins Tab PO SCH (10:09)
[2018-11-23] MEDS ORDERED: Albuterol HFA 90 mcg/actuation (8 g) INH PRN (10:14)
[2018-11-23] MEDS ORDERED: Albuterol 0.083% Inhal Sol (2.5 mg/3 mL) UD INH PRN ×2 (10:16→13:22)
--- NOTE | 2018-11-23 11:20 | PCM.PYCHPN ---
Psychiatric Progress Note - Psychiatric Progress Note Patient seen today, length of contact: 16 min Patient Chief Complaint: I want detox Problems Identified/Issues Discussed: Patient seen, chart reviewed, case discussed with staff Patient is compliant with medications and reports no side effects Patient still symptomatic of withdrawals, with tremors; needs more time to stabilize Patient not attending groups or activities 2/2 withdrawal symptoms Patient complaints of persistent wheezing, requesting home Ventolin pump Support given, psycho-education provided After care discussed Medication Change: Yes Medical Record Reviewed: Yes Mental Status Examination - Cognitive Function Orientation: Person, Place, Situation, Time Memory: Intact - Mood Mood: Anxious - Affect Affect: Constricted - Speech Speech: Appropriate - Formal Thought Process Formal Thought Process: No Impairment - Suicidal Ideation Suicidal Ideation: No - Homicidal Ideation Homicidal Ideation: No Goal/Treatment Plan - Goal/Treatment Plan Need for Continued Stay: Remain at risks for inpatient hospitalization, Discharge may exacerbated symptoms Progress Toward Problem(s) and Goals/Treatment Plan: Taper with Ativan PRN medications, Ativan, Clonidine, Motrin, Atarax, Trazodone Continue home medications for HTN and asthma All risks, benefits and treatment alternatives of medications discussed; patient understands and agrees Attend groups and activities Supportive therapy and psycho-education [place] for abstinence CBT for relapse prevention Encourage MAT Refer to rehab or IOP, and self-help groups Teach healthy lifestyle methods(diet, exercise, meditation) Discussed with Dr. Aldrich -Evelia Hoffman, PGY-1 Estimated Date of D/C: 11/26/18 - Smoking Cessation Smoking Cessation Initiated: No Reason for not providing: non-smoker
[2018-11-24] MEDS: ALBUTEROL HFA INHALER INH PRN ×3 (01:19→18:00)
[2018-11-24] MEDS: Pantoprazole 20 mg EC Tab PO SCH (10:05)
[2018-11-24] MEDS: Multiple Vitamins Tab PO SCH (10:05)
[2018-11-24] MEDS: Magnesium Oxide 400 mg Tab UD PO SCH ×2 (10:06→17:59)
--- NOTE | 2018-11-24 10:25 | PCM.PYCHPN ---
Psychiatric Progress Note - Psychiatric Progress Note Patient seen today, length of contact: 17 min Patient Chief Complaint: I want detox Problems Identified/Issues Discussed: Patient seen, chart reviewed, case discussed with staff Patient is compliant with medications and reports no side effects Patient still symptomatic of withdrawals, with tremors; needs more time to stabilize Patient not attending groups or activities 2/2 withdrawal symptoms Patient complains of inadequate treatment of asthma, requesting additional medication Support given, psycho-education provided After care discussed Medication Change: Yes Medical Record Reviewed: Yes Mental Status Examination - Cognitive Function Orientation: Person, Place, Situation, Time Memory: Intact - Mood Mood: Neutral - Affect Affect: Constricted - Speech Speech: Appropriate - Formal Thought Process Formal Thought Process: No Impairment - Suicidal Ideation Suicidal Ideation: No - Homicidal Ideation Homicidal Ideation: No Goal/Treatment Plan - Goal/Treatment Plan Need for Continued Stay: Remain at risks for inpatient hospitalization, Discharge may exacerbated symptoms Progress Toward Problem(s) and Goals/Treatment Plan: Taper with Ativan PRN medications, Ativan, Clonidine, Motrin, Atarax Continue home medications for HTN Asthma medications adjusted; adding Brovana and Pulmicort, patient to use own inhaler PRN Trazodone HS All risks, benefits and treatment alternatives of medications discussed; patient understands and agrees Attend groups and activities Supportive therapy and psycho-education [place] for abstinence CBT for relapse prevention Encourage MAT Refer to rehab or IOP, and self-help groups Teach healthy lifestyle methods(diet, exercise, meditation) Discussed with Dr. Valdemar Hoffman, PGY-1 Estimated Date of D/C: 11/25/18 If changed, why: Patient is eager to leave - Smoking Cessation Smoking Cessation Initiated: No Reason for not providing: non-smoker
[2018-11-24] MEDS ORDERED: Arformoterol 15 mcg/2 ml Inh Sol INH SCH (20:00)
[2018-11-24] MEDS: Budesonide 0.5 mg/2 ml Inhal Susp UD INH SCH (20:11)
[2018-11-24] MEDS: Arformoterol 15 mcg/2 ml Inh Sol INH SCH (21:25)
[2018-11-25 06:22] VITALS: BP 145/90; RESP 19; TEMP 98; O2SAT 96
[2018-11-25 06:28] VITALS: PULSE 60
[2018-11-25] MEDS: Arformoterol 15 mcg/2 ml Inh Sol INH SCH (07:48)
[2018-11-25] MEDS: Budesonide 0.5 mg/2 ml Inhal Susp UD INH SCH (07:48)
--- NOTE | 2018-11-25 08:56 | PCM.PYCHDC ---
Mental Status Examination - Mental Status Examination Orientation: Person Discharge Summary - Discharge Note Consultations:: List each consultation separately and include: 1. Reason for request. 2. Findings. 3. Follow-up Summary of Hospital Course include:: 1. Description of specific treatment plan utilized for patients during their course of treatmen. 2. Summarize the time- course for resolution of acute symptoms and/or regressed behaviors. 3. Describe issues identified and worked on during hospitalization. 4. Describe medication utilized. 5. Describe medical problems identified and treated. 6. Reassessment of suicide risk Summary of Hospital Course: Not interested in anything,. He was aloof and irate most of the time. - Final Diagnosis (DSM 5) Condition upon Discharge: STABLE Disposition: HOME/ ROUTINE Prescriptions/Medication Reconciliation: Albuterol HFA [Ventolin HFA 90 mcg/actuation (8 g)] 1 puff INH RQ4 PRN #1 inhaler PRN Reason: SOB Gabapentin [Neurontin] 300 mg PO BID #60 cap hydrOXYzine HCl [Atarax] 50 mg PO BID PRN #30 tab PRN Reason: Anxiety Multivitamins [Hexavitamin] 1 tab PO DAILY #30 tab traZODone [Desyrel] 100 mg PO HS PRN #30 tab PRN Reason: Insomnia
[2018-11-25] MEDS: Multiple Vitamins Tab PO SCH (09:26)
[2018-11-25] MEDS: Pantoprazole 20 mg EC Tab PO SCH (09:26)
[2018-11-25] MEDS: Magnesium Oxide 400 mg Tab UD PO SCH (09:27)
[2018-11-25] MEDS ORDERED: Arformoterol 15 mcg/2 ml Inh Sol INH SCH (10:00)
== END 2018-11-25 09:30 | disposition home or self-care (01) | DRG 750 ==
LOC: C.ER 10:51 → C.7D 13:53
PROVIDERS: ADMIT Psychiatry & Neurology Psychiatry; ATTEND Psychiatry & Neurology Psychiatry
PROC: GZ56ZZZ Individual Psychotherapy, Supportive (ICD-10-PCS; principal; 2018-11-22)
DX: F10.230 Alcohol dependence with withdrawal, uncomplicated (principal); R56.9 Unspecified convulsions; F12.10 Cannabis abuse, uncomplicated; Y90.8 Blood alcohol level of 240 mg/100 ml or more; F32.9 Major depressive disorder, single episode, unspecified; F41.1 Generalized anxiety disorder; I10 Essential (primary) hypertension; J45.909 Unspecified asthma, uncomplicated; F19.10 Other psychoactive substance abuse, uncomplicated